=== PATIENT | male | born 1990 | race Caucasian/White ===

== ENCOUNTER 2018-03-19 18:37 | Emergency (ER) | payer OTHER ==
--- NOTE | 2018-03-19 19:05 | EDPHY ---
H & P Time Seen by Provider: 03/19/18 18:46 HPI/ROS: CHIEF COMPLAINT: Left 5th digit redness and swelling HISTORY OF PRESENT ILLNESS: 27-year-old male HIV positive with undetectable viral load presents with left foot did just this redness and swelling. Onset of pain in the pinky finger 5 days ago. He was seen at an outside facility and placed on Bactrim 2 days ago. Since then the pain and swelling have gradually increased and he feels that it needs to be lanced. 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 He also has a draining abscess on the left anterior thigh which is improving. ROS: No numbness, weakness, excessive bleeding, syncopal episode, other injury. Past Medical/Surgical History: HIV positive Smoking Status: Never smoked Physical Exam: Alert and oriented, pleasant Extremities: Left 5th digit-tenderness and swelling over the distal phalanx, there is fluctuance over the palmar aspect of the digit, no tenderness along the flexor tendon, no pain with range of motion of the digit; left thigh- draining abscess anteriorly, surrounding erythema approx 4 cm Skin: erythema warmth and tenderness Neuro: Motor and sensory intact Vascular: Capillary refill brisk distally. Constitutional: Initial Vital Signs Temperature (C) 37.1 C 03/19/18 18:41 Heart Rate 87 03/19/18 18:41 Respiratory Rate 18 03/19/18 18:41 Blood Pressure 145/90 H 03/19/18 18:41 O2 Sat (%) 97 03/19/18 18:41 O2 Delivery Mode Room Air Allergies/Adverse Reactions: No Known Allergies Allergy (Unverified 03/19/18 18:40) Home Medications: Medication Instructions Recorded Atenolol 03/19/18 Bactrim DS 03/19/18 Cephalexin [Keflex (*)] 500 mg PO TID #30 cap 03/19/18 Seroquel 03/19/18 Tivicay 03/19/18 Medical Decision Making Procedures: Procedure: Abscess drainage. The patient's abscess was located on the left 5th digit. Risks, benefits, alternatives discussed with the patient and consent obtained. The abscess was incised with a #11 blade and purulent drainage was expressed. Wound culture sent. The wound was not packed because of the small incision made. The patient tolerated the procedure well. The procedure was performed by myself. ED Course/Re-evaluation: This pt with h/o recurrent abscesses presents with a draining abscess on the left thigh, that is apparently improving. He also has an abscess vs herpetic witlow on the left 5th digit. I and D revealed a substantial amount of purulent drainage, so this is most consistent with an abscess and not a herpetic clarence. Wound and viral culture sent. Keflex prescribed. He will continue taking Bactrim. Departure - Departure Disposition: Home, Routine, Self-Care Clinical Impression: Abscess Condition: Good Instructions: Abscess (ED) Referrals: Ankur Almonte MD [Medical Doctor] - 1-2 days without fail Prescriptions: Cephalexin [Keflex (*)] 500 mg PO TID #30 cap
[2018-03-19] MEDS ORDERED: CEPHALEXIN 500MG PREPACK#4 BTL TAKEHOME ONE (19:42)
[2018-03-19] MEDS ORDERED: HYDROCOD/APAP 5/325 PREPACK#6 BTL TAKEHOME ONE ×2 (19:50)
[2018-03-19 19:56] VITALS: BP 135/81
== END 2018-03-19 19:58 | disposition home or self-care (01) ==
PROC: 0H9NXZZ Drainage of Left Foot Skin, External Approach (ICD-10-PCS; principal; 2018-03-19)
DX: L02.612 Cutaneous abscess of left foot (principal); B20 Human immunodeficiency virus [HIV] disease
CPT/HCPCS: 87529-90